=== PATIENT | male | born 1985 | race Two or more races ===

== ENCOUNTER 2020-01-15 18:58 | Emergency (ER) | payer OTHER ==
[~2020-01-15] VITALS: Ht 172.7 cm; Wt 90.7 kg
[2020-01-15] MEDS ORDERED: Ketorolac 30mg Inj IM ONE (19:30)
[2020-01-15] MEDS ORDERED: Methocarbamol 750mg tab ORAL ONE (19:30)
--- NOTE | 2020-01-15 19:35 | NUR ---
ED Nurse Note: Pt to CT
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
[2020-01-15 19:37] VITALS: BP 129/90
--- NOTE | 2020-01-15 19:47 | NUR ---
ED Nurse Note: Pt back from CT
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
--- NOTE | 2020-01-15 20:02 | Diagnostic Imaging Report ---
EXAM: CT Lumbar Spine Without Intravenous Contrast CLINICAL HISTORY: TRAUMA TECHNIQUE: Axial computed tomography images of the lumbar spine without intravenous contrast. CTDI is 24 mGy and DLP is 879.20 mGy-cm. One or more of the following dose reduction techniques were used: automated exposure control, adjustment of the mA and/or kV according to patient size, use of iterative reconstruction technique. COMPARISON: No relevant prior studies available. FINDINGS: Vertebrae: No acute fracture or traumatic malalignment. Discs/spinal canal/neural foramina: No acute findings. No significant spinal canal stenosis. No significant neuroforaminal stenosis. Soft tissues: Unremarkable. IMPRESSION: No acute fracture or traumatic malalignment.
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
[2020-01-15] MEDS ORDERED: IBUPROFEN600 M1 ORAL (20:19)
[2020-01-15] MEDS ORDERED: LIDODERM700 M1 TOPIC (20:19)
[2020-01-15] MEDS ORDERED: ROBAXIN-500MG ORAL (20:19)
[2020-01-15 20:25] VITALS: BP 129/90
--- NOTE | 2020-01-15 20:25 | NUR ---
ER DISCHARGE NOTE: Patient is cleared to be discharged per ERMD, pt is aox4, on room air, with stable vital signs. pt was given dc and prescription instructions, pt was able to verbalize understanding, pt id band removed. pt is able to ambulate with steady gait. pt took all belongings.
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
== END 2020-01-15 20:25 | disposition home or self-care (01) ==
LOC: EMR 19:30
DX: S16.1XXA Strain of muscle, fascia and tendon at neck level, initial encounter (principal); S39.012A Strain of muscle, fascia and tendon of lower back, initial encounter; S46.811A Strain of other muscles, fascia and tendons at shoulder and upper arm level, right arm, initial encounter; V43.52XA Car driver injured in collision with other type car in traffic accident, initial encounter; Y92.410 Unspecified street and highway as the place of occurrence of the external cause
CPT/HCPCS: 72125; 72131; 73080; 96372; 99284; J1885